=== PATIENT | male | born 1965 | race African-American/Black ===

== ENCOUNTER 2017-08-29 05:03 | Emergency (ER) | payer SELFPAY ==
[~2017-08-29] VITALS: Ht 190.5 cm; Wt 150.2 kg
[2017-08-29 05:33] LABS: CHLORIDE 105 mEq/L (99-109); POTASSIUM 3.4 mEq/L (3.7-5.4); SODIUM 137 mEq/L (136-147)
[2017-08-29 05:34] LABS: GLUCOSE 301 mg/dL (70-99)
[2017-08-29 05:36] LABS: ANION GAP 9 MEQ/L (2-14)
[2017-08-29 05:39] LABS: UREA NITROGEN (BUN) 10 mg/dL (9-23)
[2017-08-29 05:43] LABS: GFR ESTIMATE (CALCULATED) > 59 mL/min/
[2017-08-29 05:52] LABS: HEMATOCRIT 42.7 % (38.0-50.0); MCH 30.5 PG (29.0-34.0); MCHC 34.7 G/DL (30.0-36.0); MEAN PLAT.VOLUME 12.4 uM^3 (9.0-12.4); PLATELET COUNT 240 K/uL (156-360); RBC DIS.WIDTH-CV 13.1 % (11.8-14.6); RBC DIS.WIDTH-SD 42.3 % (39-53); RED BLOOD COUNT 4.85 M/uL (4.00-5.50); WHITE BLOOD COUNT 7.2 K/uL (4.1-10.2)
[2017-08-29 06:09] LABS: INTER. NORMALIZED RATIO 0.9; PROTHROMBIN TIME 10.7 SEC (10.2-12.9)
[2017-08-29 06:12] LABS: PTT 29.7 SEC (25-37)
[2017-08-29] MEDS ORDERED: ZITHROMAX Z-PA250 MG PO (09:46)
[2017-08-29] MEDS ORDERED: AUGMENTIN875 MG PO (09:46)
[2017-08-29 11:27] VITALS: BP 160/104
== END 2017-08-29 11:30 | disposition left against medical advice (07) ==
LOC: EME 05:03
DX: J18.1 Lobar pneumonia, unspecified organism (principal); I11.0 Hypertensive heart disease with heart failure; R09.02 Hypoxemia; E78.5 Hyperlipidemia, unspecified; E11.9 Type 2 diabetes mellitus without complications
CPT/HCPCS: 71020; 80048; 83605; 83880; 85027; 85610; 85730; 87040; 93005; 99281; 99284; J0456; J0696; J1940